=== PATIENT | female | born 1975 | race Two or more races ===

== ENCOUNTER 2016-08-10 09:57 | Outpatient (CLI) ==
--- NOTE | 2016-08-10 11:40 | MRI ---
EXAM: MRI brain without IV contrast. DATE: 10 August 2016. HISTORY: Non intractable headache. TECHNIQUE: Sagittal T1W, axial T2W, axial FLAIR, axial T1W, axial DWI, and coronal T2W GRE sequence s of the brain were obtained using 1.2 Mari magnet. No IV contrast. COMPARISON: None. FINDINGS: The ventricles, cisterns, and subarachnoid spaces are normal in size and configuration. No midline shift, mass effect or abnormal extra-axial fluid collection is apparent. A 3.6 mm DWI br ight focus in the left anterolateral margin of the spinal cord near the cervicomedullary junction is likely artifact. No definitive acute infarct, hemorrhage or neoplasm is identified. Minimal T2W/F LAIR hyperintensity is observed in the white matter abutting the anterior horn of each lateral ventr icle. The velázquez - white matter differentiation is normal. The 7th/8th cranial nerve complexes, cere bellopontine angles, brainstem, and visible cervical spinal cord are normal. There is no cerebellar tonsillar ectopia. The pituitary gland is normal in size and signal. Corpus callosum is normal in size and configuration. Flow voids are present in the major intracranial arteries and in the dural venous sinuses. No aneurysm, AVM or dural venous sinus thrombosis is apparent. No orbit abnormali ty is identified. The mastoid air cells are unremarkable. There is no acute sinusitis. Frontal si nuses are hypoplastic. No neck mass or lymphadenopathy is detected. No calvarial neoplasm or acute fracture is evident. Short pedicles appear to cause borderline / mild central stenoses in the upper C-spine. IMPRESSIONS: 1. No acute infarct, hemorrhage, mass or hydrocephalus. 2. Minimal supratentorial small vessel disease. 3. Upper C-spine borderline / mild central canal stenosis.
== END 2016-08-10 09:58 | disposition home or self-care (01) ==
LOC: RAD 09:57
PROVIDERS: ATTEND Family Medicine
DX: R51 Headache (principal)

== ENCOUNTER 2017-08-03 14:18 | Emergency (ER) ==
[2017-08-03 14:24] VITALS: BP 107/76; TEMP 97.2; BMI 32.6
--- NOTE | 2017-08-03 15:08 | ED.PDOC ---
General ED Provider: Dr. SARA ORNELAS Chief Complaint: Finger Pain/Injury Stated Complaint: finger right index Time Seen by Physician: 14:30 (see photos) Mode of Arrival: Walk-In Information Source: Patient Exam Limitations: No limitations Primary Care Provider: [facility] Nursing and Triage Documentation Reviewed and Agree: Yes Reviewed sepsis parameters & appropriate labs ordered?: Yes System Inflammatory Response Syndrome: Not Applicable Sepsis Protocol: For patient's 13 years and over: Temp is 96.8 and below OR 101 and greater Pulse >90 BPM Resp >20/minute Acutely Altered Mental Status Are patient's symptoms suggestive of a new infection, such as: -Pneumonia -Skin, Soft Tissue -Endocarditis -UTI -Bone, Joint Infection -Implantable Device -Acute Abdominal Infection -Wound Infection -Meningitis -Blood Stream Catheter Infection -Unknown Musculoskeletal Complaint Exam - Hand/Wrist Complaint/Exam Location of Pain: Reports: Right, Hand, Digit #2 Mechanism of Injury: Reports: No known trauma Onset/Duration: chronic nodular wound that ulcerates and bleeds Symptoms Are: Still present Initial Severity: Mild Current Severity: Mild Location: Reports: Discrete (see photos) Character: Reports: Aching Alleviating: Reports: Rest Aggravating: Reports: None Associated Signs and Symptoms: Denies: Swelling, Redness, Bruising, Fever, Weakness, Numbness, Tingling Related History: Reports: Similar episode Dominant Hand: Right Related Surgical History: Reports: None Hand/Wrist Findings: Absent: Abnormal contour (3mm nodular lesion that bleeds with slightest manipulation) Review of Systems - Review Of Systems Constitutional: Reports: No symptoms Eyes: Reports: No symptoms Ears, Nose, Mouth, Throat: Reports: No symptoms Respiratory: Reports: No symptoms Cardiac: Reports: No symptoms GI: Reports: No symptoms : Reports: No symptoms Musculoskeletal: Reports: Other (see photo) Skin: Reports: No symptoms Neurological: Reports: No symptoms Endocrine: Reports: No symptoms Hematologic/Lymphatic: Reports: No symptoms All Other Systems: Reviewed and Negative Past Medical History - Past Medical History Previously Healthy: Yes Endocrine: Reports: None Cardiovascular: Reports: None Respiratory: Reports: None Hematological: Reports: None Gastrointestinal: Reports: None Genitourinary: Reports: None Neuro/Psych: Reports: None Musculoskeletal: Reports: None Cancer: Reports: None Last Menstrual Period: 07/25/17 - Surgical History General Surgical History: Reports: None - Family History Family History: Reports: None - Social History Smoking Status: Never smoker Hx Substance Use: No Alcohol Screening: None Physical Exam - Physical Exam Appearance: Well-appearing, No pain distress, Well-nourished Eyes: IZABELLA, EOMI, Conjunctiva clear ENT: Ears normal, Nose normal, Oropharynx normal Respiratory: Airway patent, Breath sounds clear, Breath sounds equal, Respirations nonlabored Cardiovascular: RRR, Pulses normal, No rub, No murmur GI/: Soft, Nontender, No masses, Bowel sounds normal, No Organomegaly Musculoskeletal: ROM intact ( see photo) Skin: Warm, Dry, Normal color Neurological: Sensation intact, Motor intact, Reflexes intact, Cranial nerves intact, Alert, Oriented Psychiatric: Affect appropriate, Mood appropriate Critical Care Note - Critical Care Note Total Time (mins): 0 Course - Course Vital Signs: Temp Pulse Resp BP Pulse Ox 08/03/17 14:18 97.2 F L 64 16 107/76 97 Departure - Departure Time of Disposition: 15:13 (d/c instruction extensively with gigi present) Disposition: HOME SELF-CARE Discharge Problem: Dermatofibroma Instructions: Acute Wound Care (ED) Condition: Good Pt referred to PMD for follow-up: Yes Additional Instructions: Please call your Family Physician as soon as possible to schedule a follow-up appointment. this is a recurrent problem i will ulcerate and bleed must see a master black belt for excision Allergies/Adverse Reactions: Allergies No Known Allergies Allergy (Unverified 08/03/17 14:24) Home Medications: Ambulatory Orders 1 [No Reported Medications] 08/03/17 Disposition Discussed With: Patient
== END 2017-08-03 15:20 | disposition home or self-care (01) ==
LOC: ED 14:18
DX: D23.61 Other benign neoplasm of skin of right upper limb, including shoulder (principal)
CPT/HCPCS: 87070; 87186; 99282

== ENCOUNTER 2018-03-29 14:17 | Outpatient (CLI) ==
--- NOTE | 2018-03-29 15:59 | DI ---
EXAM: Three views of the thoracic spine. History: Thoracic back pain. Findings: No acute fracture or subluxation of the thoracic spine. Mild multilevel degenerative disc space narrowing with endplate sclerosis and a few tiny anterior osteophytes. Impression: 1. No acute osseous abnormality of the thoracic spine. 2. Mild degenerative disc disease
--- NOTE | 2018-03-29 16:00 | DI ---
EXAM: Three views of the lumbar spine. History: Lower back pain. Findings: No acute fracture or subluxation of the lumbar spine. Intrauterine device is seen in the pelvis. Mild disc space narrowing at L4-L5 with tiny anterior osteophytes. Impression: 1. No acute osseous abnormality. 2. Mild degenerative disc disease at L4-L5
== END 2018-03-29 14:18 | disposition home or self-care (01) ==
LOC: RAD 14:17
PROVIDERS: ATTEND Family Medicine
DX: M54.5 Low back pain (principal); M54.6 Pain in thoracic spine

== ENCOUNTER 2018-04-04 13:31 | Outpatient (RCR) ==
--- NOTE | 2018-04-05 09:33 | RS.OPPTEV2 ---
Date of Note: 04/04/18 Visit #: 1 Date of Evaluation: 04/04/18 Payer Source: Medicaid Surgery Performed?: No Treatment Diagnosis: Low Back Pain History of Condition/Mechanism of Injury:: Patient reports no injury. Back pain has been for about two months and keeps getting worse. Prior Level of Function.....Patient was independent with: ADL's, Self Care, Caregiving, Ambulation/Mobility, Community Integration/Access Functional Limitations: Sleep, ADL's, Pushing, Pulling, Lifting, Carrying, Sitting, Standing, Bending, Squatting, Ambulation, Community Access/Integration Current Subjective/complaints:: Mrs. Crocker does not speak fluent Togolese, her helps translate. Patient reports left sided back pain. Reports pain down into LE's. States she gets tingling into both hands and legs at night in bed, if she is in one position for too long. Unable to get more specifics of radiating symptoms due to the patient and her 's limited Togolese. States she has not tried heat or ice to her back. Medical History Smoking Status: Never smoker Hx Home Medications: Tylenol Patient's Goals: Her goal is to get relief of back pain. Pain Assessment - Pain Description Pain Location: low back to upper back, radiating symptoms into LE's. Current Pain Intensity: not quantified Worst Pain Intensity: 9/10 Functional Outcome Measure Oswestry LBP: 42 - G Codes & Severity Modifier G Codes & Modifier: NA Source of G Code score: NA Observation - Observation Posture: Forward Head, Rounded Shoulders Gait - Gait Pattern General Gait Pattern Observation: No Deviations/Normal - ROM Lumbar Flexion: Hand reach to Mid-Shins Sidebending to Left: Reach to Lateral Joint Line Sidebending to Right: Reach to Lateral Joint Line Comments: Lumbar extension is WFL's with reports of pain. Patient also reports increased pain with flexion and sidebending bilterally. Bilateral hip joints are limited into IR and ER - Strength Comments: Trunk strength is at least 4/5. LE strength 4+/5, patient reports back pain with resisted hip fleixon. - Special Tests SLR Test: Negative Left, Negative Right Seated Dural Stretch Test: Negative Left, Negative Right Palpation Comments:: Patient demonstrates moderate increased muscle tone along the lumbar paraspinals. Reports tenderness on the left upper lumbar paraspinals and at the lumbosacral junction on the left side. Reports discomfort with Central PA' s to the lumbar spinous processes of L4 & 5. Sensation - Sensation Right Lower Extremity: Intact/Normal Left Lower Extremity: Intact/Normal Additional Comments: Additional Comments: Bilateral SLR in supine to 40-45 degrees. - Treatment Modality: Ultrasound Parameters/Method Applied: 1.5 w/cm2 continuous X 10 mins to bilateral lumbar paraspinals, with emphasis on the left side. Patient Position: Right Sidelying Interventions - Exercise/Activities/Manual Therapy Exercises/Activities: Patient instructed in ex's for home of SKTC and HS stretch. Gave pictures and demonstrated to patient and her . Also advised her to try heat or ice if she is sore/achy later. Manual Therapy: NA HOME EXERCISE PROGRAM: SKTC and HS stretch - Charges Timed Code Treatment Minutes: 10 mins Total Treatment Time: 48 mins Procedures billed for this date of service:: EVAL medium, US EVALUATION COMPLEXITY LEVEL EVALUATION COMPLEXITY LEVEL: HISTORY: Medium (limited Togolese, difficult getting history and subjective), EXAM OF BODY SYSTEMS: Medium, CLINICAL PRESENTATION: Medium, CLINICAL DECISION MAKING: Medium Assessment Assessment: Mrs. Crocker presents to therapy with a diagnosis of Low back pain. She reports pain in the middle to low back. Only specific information regarding radiating symptoms is that she gets radiating pain (and/or tingling) when she is laying down at night in one position for too long. She demonstrates moderate muscle guarding along the lumbar paraspinals and tenderness along the left side of the lumbar spine. She reports pain with most lumbar AROM, and limited lumbar spine and bilateral hip mobility. She demonstrates good potential to benefit from stretching exercises and modalities to reduce her pain and improve her mobility. Patient Education: Education of diagnosis, Body/Joint mechanics (limited due to language barrier), Home Exercise Program, Education of Plan of Care Rehab Potential: Good Short Term Goals Goal #1: Pt independent with HEP. Goal to be met by: 04/12/18 Goal #2: Pt to report no tenderness to left lumbar paraspinals. Goal to be met by: 04/19/18 Goal #3: Lumbar AROM WFL's with minimal back pain. Goal to be met by: 04/19/18 Goal #4: Pt to report that radiating symptoms are better/ occurring less often. Goal to be met by: 04/19/18 Design Engineering Technician Goals Goal #1: Pt knows HEP and to continue ex's to maintain functional level after D/ C. Goal to be met by: 05/10/18 Goal #2: Score on Oswestry LBP scale improved to 20. Goal to be met by: 05/10/18 Goal #3: Pt able to perform daily ADL's with minimal back pain. Goal to be met by: 05/10/18 Plan - Treatment to be Provided Procedures: Therapeutic Exercises, Therapeutic Activity, Manual Therapy, Patient Education Modalities: Electrical Stimulation, Ultrasound/Phonophoresis, Cryotherapy, Hot Packs - Treatment Plan Frequency: 3 X week Duration: 3 weeks ORDER # VISITS AND/OR THROUGH DATE: 05/10/18 - Treatment Code (1) Low back pain Code(s): M54.5 - LOW BACK PAIN Qualifiers: Chronicity: acute Back pain laterality: unspecified Sciatica presence: unspecified whether sciatica present Qualified Code(s): M54.5 - Low back pain (2) Lumbar radiculopathy Code(s): M54.16 - RADICULOPATHY, LUMBAR REGION Comments: M54.16
== END 2018-04-05 23:59 | disposition short-term general hospital (02) ==
PROVIDERS: ATTEND Family Medicine
DX: M54.5 Low back pain (principal)

== ENCOUNTER 2018-05-02 14:00 | Outpatient (RCR) ==
--- NOTE | 2018-04-15 08:34 | RS.OPPTDN ---
Subjective Date of Note: 04/11/18 Visit #: 2 Date of Evaluation: 04/04/18 Payer Source: Medicaid Treatment Diagnosis: Low Back Pain Current Subjective/complaints:: Patient reports pain at the bilateral lowback and S-I joints. States pain is some better following treatment. States she understands HEP. Pain Assessment - Pain Description Pain Location: lowback and S-I joints Current Pain Intensity: 7-8/10 Other Comments regarding Pain:: Reports pain is a little better following treatment. - Treatment Modality: Ultrasound Parameters/Method Applied: [id number] at 1.5w/cm2 to the bilateral lower lumbar paraspinals and S-I joints prior to EX. Patient Position: Prone Interventions - Exercise/Activities/Manual Therapy Exercises/Activities: Prone on elbows and modified press-ups. Assisted to supine for stretching of the bilateral hamstrings, SKTC, piriformis, and figure 4 hip stretch. Isometric hip flexion on left and isometric hip ext on right, performed together and separately for MET and pelvic alignment. Isometric hip add. Pelvic tilts and bridge. Patient education of basics of body mechanics, safe positions with lifting, and HEP. Patient given copy of new exercises. Total minutes of Exercise: 28mins Manual Therapy: NA HOME EXERCISE PROGRAM: SKTC and HS stretch, piriformis stretch, bridge - Charges Timed Code Treatment Minutes: 38mins Total Treatment Time: 42mins Procedures billed for this date of service:: US, EX2 Assessment: Patient attentive to paitent education and HEP. Reports some pain reduction with treatment. Patient Education: Body/Joint mechanics, Home Exercise Program, Activity Modification Patient demonstrates compliance with HEP?: Yes Short Term Goals Goal #1: Pt independent with HEP. Goal to be met by: 04/12/18 Progress towards Goal:: Progressing Goal #2: Pt to report no tenderness to left lumbar paraspinals. Goal to be met by: 04/19/18 Goal #3: Lumbar AROM WFL's with minimal back pain. Goal to be met by: 04/19/18 Goal #4: Pt to report that radiating symptoms are better/ occurring less often. Goal to be met by: 04/19/18 Lawn Care Technician Goals Goal #1: Pt knows HEP and to continue ex's to maintain functional level after D/ C. Goal to be met by: 05/10/18 Goal #2: Score on Oswestry LBP scale improved to 20. Goal to be met by: 05/10/18 Goal #3: Pt able to perform daily ADL's with minimal back pain. Goal to be met by: 05/10/18 Plan PLAN OF CARE EXPIRES ON:: 05/10/18 ORDER # VISITS AND/OR THROUGH DATE: 05/10/18 PLAN: Continue modalities and progress exercise to reduce pain and increase functional activity level.
--- NOTE | 2018-04-15 16:21 | RS.OPPTDN ---
Subjective Date of Note: 04/15/18 Visit #: 3 Date of Evaluation: 04/04/18 Payer Source: Medicaid Treatment Diagnosis: Low Back Pain Current Subjective/complaints:: Patient reports pain is higher today. Indicates pain is 10/10 on pain scale. She states she is working on HEP and will continue. Reports she feels better following modalities and exercise. Pain Assessment - Pain Description Pain Location: lowback and bilateral S-I joints Worst Pain Intensity: 10/10 Other Comments regarding Pain:: Reports pain improved following treatment today. - Treatment Modality: Electrical Stim Unattended Parameters/Method Applied: [id number] HVGC to 130p.v. with 4 large pads to the bilateral lower lumbar paraspinals and S-I joints with HP prior to EX. Patient Position: Prone - Heat/Cryotherapy Treatment: Hot Pack ([id number] with Estim ) Interventions - Exercise/Activities/Manual Therapy Exercises/Activities: Prone on elbows and modified press-ups. Assisted to supine for stretching of the bilateral hamstrings, SKTC, piriformis, and figure 4 hip stretch. Isometric hip flexion on left and isometric hip ext on right, performed together and separately for MET and pelvic alignment. Bridging x3reps. Patient education of basics of body mechanics, safe positions with lifting, and HEP. Patient given copy of bridging to add to HEP. Total minutes of Exercise: 14mins Manual Therapy: NA HOME EXERCISE PROGRAM: SKTC and HS stretch, piriformis stretch, bridge - Charges Timed Code Treatment Minutes: 14mins Total Treatment Time: 34mins Procedures billed for this date of service:: HP, Estim unattended, EX Assessment: Changed to Estim in attempt to reduce patients pain level. Patient appears to be working on HEP as instructed. Patient Education: Home Exercise Program, Home Safety Comments: Reviewed HEP and safe lifting with ADL's. Patient demonstrates compliance with HEP?: Yes Short Term Goals Goal #1: Pt independent with HEP. Goal to be met by: 04/12/18 Progress towards Goal:: Progressing Goal #2: Pt to report no tenderness to left lumbar paraspinals. Goal to be met by: 04/19/18 Goal #3: Lumbar AROM WFL's with minimal back pain. Goal to be met by: 04/19/18 Goal #4: Pt to report that radiating symptoms are better/ occurring less often. Goal to be met by: 04/19/18 Mcc Goals Goal #1: Pt knows HEP and to continue ex's to maintain functional level after D/ C. Goal to be met by: 05/10/18 Goal #2: Score on Oswestry LBP scale improved to 20. Goal to be met by: 05/10/18 Goal #3: Pt able to perform daily ADL's with minimal back pain. Goal to be met by: 05/10/18 Plan PLAN OF CARE EXPIRES ON:: 05/10/18 ORDER # VISITS AND/OR THROUGH DATE: 05/10/18 PLAN: Continue with modalities and progress exercise to reduce pain and increase functional activity level.
--- NOTE | 2018-04-18 15:46 | RS.OPPTDN ---
Subjective Date of Note: 04/18/18 Visit #: 4 Date of Evaluation: 04/04/18 Payer Source: Medicaid Treatment Diagnosis: Low Back Pain Current Subjective/complaints:: Patient reports her pain is better. States she is working on HEP. Pain Assessment - Pain Description Pain Location: Bilateral lumbar paraspinals and bilateral S-I joints Current Pain Intensity: 8/10 Other Comments regarding Pain:: Reports little to no pain at the lowback and S- I region immediately following treatment today. - Treatment Modality: Electrical Stim Unattended Parameters/Method Applied: [id number] HVGC to 115p.v. with 4 large pads cross current to the bilateral lumbar paraspinals and S-I joints with HP prior to EX. Patient Position: Prone - Heat/Cryotherapy Treatment: Hot Pack (with Estim ) Interventions - Exercise/Activities/Manual Therapy Exercises/Activities: Prone with pillows under chest during Estim. Assisted to supine for stretching of the bilateral hamstrings, SKTC, piriformis, and figure 4 hip stretch. Isometric hip ext on right, multiple reps. Then performed isometric hip ext on right and left hip flexion together for MET and pelvic alignment. Bridging x3reps. Green theraband for resisted hip abduction. Patient education of back safety with lifting, and HEP. Total minutes of Exercise: 14mins Manual Therapy: NA HOME EXERCISE PROGRAM: SKTC and HS stretch, piriformis stretch, bridge. Green theraband for bilateral hip abduction in hook-lying. - Charges Timed Code Treatment Minutes: 14mins Total Treatment Time: 37mins Procedures billed for this date of service:: HP, Estim unattended, EX Assessment: Patient reporting she is responding to treatment with reduction in pain. She appears to be consistently working on HEP. Patient Education: Body/Joint mechanics, Home Exercise Program, Home Safety, Activity Modification Patient demonstrates compliance with HEP?: Yes Short Term Goals Goal #1: Pt independent with HEP. Goal to be met by: 04/12/18 Progress towards Goal:: Partially Met Goal #2: Pt to report no tenderness to left lumbar paraspinals. Goal to be met by: 04/19/18 Goal #3: Lumbar AROM WFL's with minimal back pain. Goal to be met by: 04/19/18 Goal #4: Pt to report that radiating symptoms are better/ occurring less often. Goal to be met by: 04/19/18 Progress towards Goal:: Progressing Chip Loft Worker Goals Goal #1: Pt knows HEP and to continue ex's to maintain functional level after D/ C. Goal to be met by: 05/10/18 Progress towards goal: Progressing Goal #2: Score on Oswestry LBP scale improved to 20. Goal to be met by: 05/10/18 Goal #3: Pt able to perform daily ADL's with minimal back pain. Goal to be met by: 05/10/18 Plan PLAN OF CARE EXPIRES ON:: 05/10/18 ORDER # VISITS AND/OR THROUGH DATE: 05/10/18 PLAN: Continue Estim and progress exercise to reduce pain and increase functional activity level.
--- NOTE | 2018-04-22 14:30 | RS.OPPTDN ---
Subjective Date of Note: 04/22/18 Visit #: 5 Date of Evaluation: 04/04/18 Payer Source: Medicaid Treatment Diagnosis: Low Back Pain Current Subjective/complaints:: Patient reports he pain is a little better. Rates her pain at 6-7/10 at rest or with light activities. States her pain increases to 9-10/10 with work activities. States she is working on all HEP as instructed. Pain Assessment - Pain Description Pain Location: Bilateral lowback and S-I joints. Current Pain Intensity: 6-7/10 Worst Pain Intensity: 9-10/10 with work activities - Treatment Modality: Electrical Stim Unattended Parameters/Method Applied: [id number] HVGC to 125p.v. 4 large pads cross current to the bilateral lumbar paraspinals and S-I joints with HP prior to EX. Patient Position: Prone - Heat/Cryotherapy Treatment: Hot Pack (with Estim ) Interventions - Exercise/Activities/Manual Therapy Exercises/Activities: Prone with pillows under chest during HP and Estim. Began prone hip extension. Assisted to supine for stretching of the bilateral hamstrings, SKTC, piriformis, and figure 4 hip stretch. MET of isometric hip ext on right, multiple reps. This resolves leg length. Bridging x3reps, increasing to 10sec hold. On going patient education of need to lengthen hamstrings and to be cautious with lifting. Total minutes of Exercise: 14mins Manual Therapy: NA HOME EXERCISE PROGRAM: SKTC and HS stretch, piriformis stretch, bridge. Green theraband for bilateral hip abduction in hook-lying. - Charges Timed Code Treatment Minutes: 14mins Total Treatment Time: 37mins Procedures billed for this date of service:: HP, Estim unattended, EX Assessment: Patient reports improvement in pain and she appears to be working on HEP as instructed. Patient Education: Body/Joint mechanics, Home Exercise Program, Home Safety, Activity Modification Patient demonstrates compliance with HEP?: Yes Short Term Goals Goal #1: Pt independent with HEP. Goal to be met by: 04/12/18 Progress towards Goal:: Partially Met Goal #2: Pt to report no tenderness to left lumbar paraspinals. Goal to be met by: 04/19/18 Progress towards Goal:: Progressing Goal #3: Lumbar AROM WFL's with minimal back pain. Goal to be met by: 04/19/18 Progress towards Goal:: Progressing Goal #4: Pt to report that radiating symptoms are better/ occurring less often. Goal to be met by: 04/19/18 Progress towards Goal:: Progressing Insurance Checker Goals Goal #1: Pt knows HEP and to continue ex's to maintain functional level after D/ C. Goal to be met by: 05/10/18 Progress towards goal: Progressing Goal #2: Score on Oswestry LBP scale improved to 20. Goal to be met by: 05/10/18 Goal #3: Pt able to perform daily ADL's with minimal back pain. Goal to be met by: 05/10/18 Plan PLAN OF CARE EXPIRES ON:: 05/10/18 ORDER # VISITS AND/OR THROUGH DATE: 05/10/18 PLAN: Continue modalities and progress pelvic alignment and stability exercise to increase patients functional activity level.
--- NOTE | 2018-04-25 14:25 | RS.OPPTDN ---
Subjective Date of Note: 04/25/18 Date of Evaluation: 04/04/18 Payer Source: Medicaid Treatment Diagnosis: Low Back Pain Current Subjective/complaints:: Mrs. Crocker states her back pain is a little better. States she does not sleep well at night because she gets pain in her feet and has to change positions frequently. - Treatment Modality: Electrical Stim Unattended Parameters/Method Applied: 4 large pads to lumbar paraspinals to SI joints X 20 mins at 125 peak volts. Patient Position: Prone - Heat/Cryotherapy Treatment: Hot Pack (with Estim to lumbar spine) Interventions - Exercise/Activities/Manual Therapy Exercises/Activities: Reviewed prone single LE extension. Patient reports pain with extension of the right LE. Assisted to supine for stretching of the bilateral hamstrings, SKTC, piriformis, lower trunk rotation,and figure 4 hip stretch. MET of isometric hip ext on right, flexion of the left hip X 3 reps. This resolves leg length. Bridging x5reps, increasing to 10sec hold. Isometric hip adduction, and abduction with 10 reps. Added left hip flexion isometric to HEP. Total minutes of Exercise: X 15 mins Manual Therapy: NA HOME EXERCISE PROGRAM: SKTC and HS stretch, piriformis stretch, bridge. Green theraband for bilateral hip abduction in hook-lying, left hip flexion isometric. - Charges Timed Code Treatment Minutes: 15 mins Total Treatment Time: 37 mins Procedures billed for this date of service:: EX, HP, Estim(un) Assessment: Mrs. Crocker reports pain is a little better. Reports interrupted sleep from pain in her feet. She reports performing exercises at home. Patient Education: Education of diagnosis Patient demonstrates compliance with HEP?: Yes Short Term Goals Goal #1: Pt independent with HEP. Goal to be met by: 04/12/18 Progress towards Goal:: Partially Met Goal #2: Pt to report no tenderness to left lumbar paraspinals. Goal to be met by: 04/19/18 Progress towards Goal:: Progressing Goal #3: Lumbar AROM WFL's with minimal back pain. Goal to be met by: 04/19/18 Progress towards Goal:: Progressing Goal #4: Pt to report that radiating symptoms are better/ occurring less often. 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 Goal to be met by: 05/10/18 Progress towards goal: Progressing Goal #2: Score on Oswestry LBP scale improved to 20. Goal to be met by: 05/10/18 Goal #3: Pt able to perform daily ADL's with minimal back pain. Goal to be met by: 05/10/18 Plan PLAN OF CARE EXPIRES ON:: 05/10/18 ORDER # VISITS AND/OR THROUGH DATE: 05/10/18 PLAN: Progress lumbar/pelvic stability exericses to decrease pain.
--- NOTE | 2018-04-30 15:13 | RS.OPPTDN ---
Subjective Date of Note: 04/30/18 Visit #: 7 Date of Evaluation: 04/04/18 Payer Source: Medicaid Treatment Diagnosis: Low Back Pain Current Subjective/complaints:: Patient reports back pain is better. States she is careful with lifting and daily activities, and is working on HEP. Pain Assessment - Pain Description Pain Location: lowback and S-I joints Current Pain Intensity: 6/10 - Treatment Modality: Electrical Stim Unattended Parameters/Method Applied: [id number] HVGC to 140p.v. with 4 large pads to the bilateral S-I joints and lumbar paraspinals with HP prior to EX. Patient Position: Prone - Heat/Cryotherapy Treatment: Hot Pack Interventions - Exercise/Activities/Manual Therapy Exercises/Activities: Prone on elbows, modified press-up, and alt hip extension. Continues to report discomfort with extension of the right LE. Assisted to supine for stretching of the bilateral hamstrings, SKTC, piriformis , lower trunk rotation,and figure 4 hip stretch. MET of isometric hip ext on right, flexion of the left hip. Bridging x3reps, 10sec hold. Isometric hip adduction. Green theraband for hip abd in hook-lying, 2s/10reps each. Ended with an additional bridge x10sec. Total minutes of Exercise: 16mins Manual Therapy: NA HOME EXERCISE PROGRAM: SKTC and HS stretch, piriformis stretch, bridge. Green theraband for bilateral hip abduction in hook-lying, left hip flexion isometric. - Objective Findings Observations,measurements,etc.: Demos nearly equal leg length today. - Charges Timed Code Treatment Minutes: 16mins Total Treatment Time: 36mins Procedures billed for this date of service:: HP, Estim unattended, EX Assessment: Patient reporting improvement in pain level. She appears to be working on HEP. Patient Education: Home Exercise Program, Home Safety, Activity Modification Comments: Patient education on safe lifting and proper body mechanics. Patient demonstrates compliance with HEP?: Yes Short Term Goals Goal #1: Pt independent with HEP. Goal to be met by: 04/12/18 Progress towards Goal:: Met Goal #2: Pt to report no tenderness to left lumbar paraspinals. Goal to be met by: 04/19/18 Progress towards Goal:: Progressing Goal #3: Lumbar AROM WFL's with minimal back pain. Goal to be met by: 04/19/18 Progress towards Goal:: Progressing Goal #4: Pt to report that radiating symptoms are better/ occurring less often. 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 Goal to be met by: 05/10/18 Progress towards goal: Progressing Goal #2: Score on Oswestry LBP scale improved to 20. Goal to be met by: 05/10/18 Goal #3: Pt able to perform daily ADL's with minimal back pain. Goal to be met by: 05/10/18 Plan PLAN OF CARE EXPIRES ON:: 05/10/18 ORDER # VISITS AND/OR THROUGH DATE: 05/10/18 PLAN: Progress pelvic alignment exercises to reduce pain and increase patients functional activity level.
--- NOTE | 2018-05-02 16:24 | RS.OPPTDN ---
Subjective Date of Note: 05/02/18 Visit #: 8 Date of Evaluation: 04/04/18 Payer Source: Medicaid Treatment Diagnosis: Low Back Pain Current Subjective/complaints:: Patient reports pain has continued to improve. She states she is working on HEP. Pain Assessment - Pain Description Pain Location: Bilateral S-I joints and lower lumbar paraspinals Current Pain Intensity: 5/10 on average - Treatment Modality: Electrical Stim Unattended Parameters/Method Applied: [id number] HVGC at 110p.v. with 4 large pads cross current to the lowback and bilateral S-I joints prior to EX. Patient Position: Prone - Heat/Cryotherapy Treatment: Hot Pack (with Estim ) Interventions - Exercise/Activities/Manual Therapy Exercises/Activities: Discussion continuation of prone on elbows, modified press -up in HEP. Alt hip extension 10reps, patient denies pain in lowback today. Assisted to supine for stretching of the bilateral hamstrings, SKTC, piriformis , lower trunk rotation,and figure 4 hip stretch. MET of isometric hip ext on right, flexion of the left hip. Bridging x5reps, 10sec hold. Isometric hip adduction. Increased to blue theraband for hip abd in hook-lying, 2s/10reps each. Total minutes of Exercise: 15mins Manual Therapy: NA HOME EXERCISE PROGRAM: SKTC and HS stretch, piriformis stretch, bridge. Green and blue therabands for bilateral hip abduction in hook-lying, left hip flexion isometric. - Charges Timed Code Treatment Minutes: 15mins Total Treatment Time: 38mins Procedures billed for this date of service:: HP, Estim unattended, EX Assessment: Patient has progressed well with treatment and exercise program. She met 4 of 7 goals and was independent with HEP. Patient Education: Home Exercise Program, Home Safety Comments: Patient education of safety, body mechanics, and HEP finalized. Patient demonstrates compliance with HEP?: Yes Short Term Goals Goal #1: Pt independent with HEP. Goal to be met by: 04/12/18 Progress towards Goal:: Met Goal #2: Pt to report no tenderness to left lumbar paraspinals. Goal to be met by: 04/19/18 Progress towards Goal:: Progressing Goal #3: Lumbar AROM WFL's with minimal back pain. Goal to be met by: 04/19/18 Progress towards Goal:: Met Goal #4: Pt to report that radiating symptoms are better/ occurring less often. 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 Goal to be met by: 05/10/18 Progress towards goal: Met Goal #2: Score on Oswestry LBP scale improved to 20. Goal to be met by: 05/10/18 Progress towards goal: Progressing Goal #3: Pt able to perform daily ADL's with minimal back pain. Goal to be met by: 05/10/18 Progress towards goal: Progressing Plan PLAN OF CARE EXPIRES ON:: 05/10/18 ORDER # VISITS AND/OR THROUGH DATE: 05/10/18 PLAN: Discharge with HEP.
--- NOTE | 2018-05-03 09:53 | RS.QUICKDC ---
Discharge from PT Date of Discharge: 05/02/18 Number of Visits: 8 Reason for Discharge: Patient consistently attended 8 approved treatment sessions. Patient progressed and met 4 of 7 treatment goals. Discharge at this time with HEP.
== END 2018-05-05 23:59 ==
PROVIDERS: ATTEND Family Medicine
DX: M54.5 Low back pain (principal)

== ENCOUNTER 2018-08-05 13:00 | Outpatient (RCR) | END 2018-08-05 23:59 | PROVIDERS: ATTEND Family Medicine | DX: M54.5 Low back pain (principal) ==